=== PATIENT | female | born 1980 | race Asian ===

== ENCOUNTER 2018-08-04 16:06 | Emergency (ER) | payer OTHER ==
[2018-08-04 17:04] LABS: BEDSIDE GLUCOSE 84 MG/DL (70-105)
[2018-08-04 17:12] LABS: BASO % 0.4 % (0.0-1.0); EOS # 0.2 10^3/uL (0.0-0.50); EOS % 1.7 % (0.0-3.0); HEMOGLOBIN 11.5 g/dl (12.0-15.5); IMMATURE GRANULOCYTE % 0.4 % (0-3.0); LYMPH # 2.2 10^3/uL (1.5-4.5); LYMPH % 22.2 % (24.0-44.0); MEAN CORPUSCULAR HEMOGLOBIN 30.8 pg (27.0-33.0); MEAN CORPUSCULAR HGB CONC 33.8 g/dl (32.0-36.5); MEAN CORPUSCULAR VOLUME 91.2 fl (80.0-96.0); MONO # 0.6 10^3/uL (0.0-0.8); MONO % 6.3 % (0.0-5.0); NEUTROPHILS # 6.9 10^3/uL (1.8-7.7); PLATELET COUNT, AUTOMATED 233 10^3/uL (150-450); RED BLOOD COUNT 3.73 10^6/uL (4.00-5.40); RED CELL DISTRIBUTION WIDTH 12.7 % (11.5-14.5)
[2018-08-04] MEDS: METOCLOPRAMIDE INJ 10MG/2ML VIAL (J2765) IV (17:35)
[2018-08-04] MEDS: NS 1,000 ML IV (17:35)
[2018-08-04 17:37] LABS: INR 0.99; PROTHROMBIN TIME 13.2 SECONDS (12.1-14.4)
[2018-08-04 17:38] LABS: PARTIAL THROMBOPLASTIN TIME 27.1 SECONDS (25.4-37.6)
[2018-08-04 17:40] LABS: ANION GAP 9 MEQ/L (8-16); BLOOD UREA NITROGEN 10 MG/DL (7-18); CALCIUM LEVEL 8.9 MG/DL (8.5-10.1); CARBON DIOXIDE LEVEL 23 MEQ/L (21-32); CHLORIDE LEVEL 105 MEQ/L (98-107); CK-MB VALUE MASS < 1.0 NG/ML (<3.6); CPK CREATINE PHOSPHOKINASE 32 U/L (26-192); CREATININE FOR GFR 0.51 MG/DL (0.55-1.30); GLOMERULAR FILTRATION RATE > 60.0 (>60); GLUCOSE, FASTING 78 MG/DL (70-100); MB/CK RELATIVE INDEX 3.12 (< OR =4); POTASSIUM SERUM 4.1 MEQ/L (3.5-5.1); SODIUM LEVEL 137 MEQ/L (136-145); TROPONIN I < 0.02 NG/ML (< 0.10)
== END 2018-08-04 19:39 | disposition home or self-care (01) ==
LOC: M ED 16:06
DX: O99.351 Diseases of the nervous system complicating pregnancy, first trimester (principal); G43.909 Migraine, unspecified, not intractable, without status migrainosus; Z3A.13 13 weeks gestation of pregnancy
CPT/HCPCS: J2765

== ENCOUNTER → 2020-10-15 | Outpatient (REF) | payer OTHER ==
[~2020-10-15] MED LIST: PRENTAB55 PO
[2020-10-15 12:41] LABS: APPEARANCE, URINE CLEAR (CLEAR); BACTERIA, URINE AUTO NEGATIVE (NEGATIVE); BILIRUBIN, URINE AUTO NEGATIVE (NEGATIVE); BLOOD, URINE BLOOD NEGATIVE (NEGATIVE); COLOR, URINE YELLOW (YELLOW); GLUCOSE, URINE (UA) AUTO NEGATIVE (NEGATIVE); KETONE, URINE AUTO NEGATIVE (NEGATIVE); LEUKOCYTE ESTERASE, URINE AUTO NEGATIVE (NEGATIVE); MUCUS, URINE SMALL (NEGATIVE); NITRITE, URINE AUTO NEGATIVE (NEGATIVE); PROTEIN, URINE AUTO NEGATIVE (NEGATIVE); RBC, URINE AUTO 0 /HPF (0-3); SPECIFIC GRAVITY URINE AUTO 1.011 (1.002-1.035); SQUAMOUS EPITHELIAL CELL UR AU 0 /HPF (0-6); UROBILINOGEN, URINE AUTO 0.2 mg/dL (0.0-2.0); WBC, URINE AUTO 0 /HPF (0-3)
[2020-10-15 12:44] LABS: BASO % 0.7 % (0.0-1.0); EOS # 0.1 10^3/uL (0.0-0.5); EOS % 3.3 % (0.0-3.0); HEMOGLOBIN 12.8 g/dl (12.0-15.5); LYMPH # 1.8 10^3/uL (1.5-5.0); LYMPH % 42.2 % (24.0-44.0); MEAN CORPUSCULAR HEMOGLOBIN 30.1 pg (27.0-33.0); MEAN CORPUSCULAR VOLUME 94.1 fl (80.0-96.0); MONO # 0.4 10^3/uL (0.0-0.8); MONO % 8.9 % (0.0-5.0); NEUTROPHILS # 1.9 10^3/uL (1.5-8.5); NEUTROPHILS % 44.7 % (36.0-66.0); PLATELET COUNT, AUTOMATED 257 10^3/uL (150-450); RED BLOOD COUNT 4.25 10^6/uL (4.00-5.40); WHITE BLOOD COUNT 4.3 10^3/uL (4.0-10.0)
[2020-10-15 13:07] LABS: COMPLEMENT C3 92 MG/DL (90-180); COMPLEMENT C4 18 MG/DL (10-40)
[2020-10-15 13:09] LABS: CREATININE,RANDOM URINE 40.4 MG/DL; ERYTHROCYTE SEDIMENTATION RATE 8 mm/hr (0-20); TOTAL PROTEIN,RANDOM URINE 5.8 MG/DL (0.0-12.0)
[2020-10-15 13:10] LABS: ALBUMIN 3.7 GM/DL (3.2-5.2); ALT/SGPT 20 U/L (12-78); BILIRUBIN,DIRECT 0.2 MG/DL (0.0-0.2); BILIRUBIN,TOTAL 0.5 MG/DL (0.2-1.0); BLOOD UREA NITROGEN 15 MG/DL (7-18); CALCIUM LEVEL 8.8 MG/DL (8.5-10.1); CARBON DIOXIDE LEVEL 27 MEQ/L (21-32); CHLORIDE LEVEL 106 MEQ/L (98-107); CREATININE FOR GFR 0.65 MG/DL (0.55-1.30); GLOMERULAR FILTRATION RATE > 60.0 (>60); GLUCOSE, FASTING 84 MG/DL (70-100); POTASSIUM SERUM 4.2 MEQ/L (3.5-5.1); SODIUM LEVEL 140 MEQ/L (136-145); TOTAL PROTEIN 7.9 GM/DL (6.4-8.2)
[2020-10-15 13:17] LABS: HEPATITIS B SURFACE ANTIBODY NEGATIVE (POSITIVE)
[2020-10-15 13:28] LABS: HEPATITIS B SURFACE ANTIGEN NEGATIVE (NEGATIVE)
[2020-10-15 13:56] LABS: HEPATITIS C VIRUS ABY INDEX 0.1 INDEX (<0.8)
[2020-10-20 15:10] LABS: ANA (HEP2) Negative (.); BETA-2 GLYCOPROTEIN I ABY IGA <9 (0-25); BETA-2 GLYCOPROTEIN I ABY IGG <9 (0-20); BETA-2 GLYCOPROTEIN I ABY IGM <9 (0-32); CARDIOLIPIN IGA ANTIBODY <9 APL U/mL (0-11); CARDIOLIPIN IGG ANTIBODY <9 GPL U/mL (0-14); CARDIOLIPIN IGM ANTIBODY 10 MPL U/mL (0-12); HEPATITIS B CORE ANTIBODY IGG Negative (Negative)
[2020-10-21 09:47] LABS: DRVV SCREEN 31.7 SEC; PTT LUPUS TYPE ANTICOAG SCREEN 0.8 (0-1.2)
== END ==
LOC: M SFHCRHEU 09:54
PROVIDERS: ATTEND Internal Medicine
DX: I77.5 Necrosis of artery (principal)
CPT/HCPCS: 80048; 80076; 81001; 82570; 84156; 85025; 85652; 85730; 86038; 86140; 86146; 86147; 86160; 86162; 86256; 86704; 86706; 86803; 87340; G0463

== ENCOUNTER 2020-11-08 10:33 | Day surgery (SDC) | payer OTHER ==
[~2020-11-08] VITALS: Ht 160 cm; Wt 60.3 kg
[~2020-11-08 10:33] MED LIST changes: +NS 1,000 ML IV ONE; +OMEP-221
[2020-11-08] MEDS ORDERED: propofoL 200 MG/20 ML VIAL As Ordered ONE (10:34)
[2020-11-08] MEDS ORDERED: LIDOCAINE 2% 100MG/5ML SDV (FOR ANES.) As Ordered ONE (10:34)
--- OUTSIDE RECORDS SUMMARY | 2020-11-08 10:38 | CCD | Continuity of Care Document ---
Author Author Lisette PAVON M.D. Organization Unknown Address [address] [place] [address] Phone [phone] Care Team Providers Care Resort Keeper Name Role Phone Edenilson Holder MD [facility] [phone] Problems Active Problems Provider Date Abdominal pain Robe Pavon M.D. Onset: 10/28/19 21 Social History Type Date Description Comments Sex Unknown ETOH Use Occasionally Tobacco Use Start: Unknown Patient has never smoked Allergies, Adverse Reactions, Alerts Active Allergies Reaction Severity Comments Date NKDA 10/28/2020 Seasonal Allergies Medications Active Medications SIG Qnty Indications Ordering Provide r Date Omeprazole 40mg Capsules DR 1 cap by mouth every morning 90caps Robe Pavon M.D. 021 History Medications No Active Medications Robe mendoza M.D. 10/28/2020 - 10/28/2020 Immunizations Description No Information Available Vital Signs Date Vital Result Comment 10/28/2020 9:49am Height 63 inches 5'3" Weight 131.00 lb BP Systolic 99 mmHg BP Diastolic 73 mmHg Heart Rate 67 /min BMI (Body Mass Index) 23.2 kg/m2 Weight 59.422 kg Body Temperature 97.1 F Results Description No Information Available Procedures Description No Information Available Medical Devices Description No Information Available Encounters Type Date Location Provider Dx Diagnosis Office Visit 10/28/2020 9:30a Main Office Robe Pavon M.D. K 21.9 Gastro-esophageal reflux disease without esophagitis Assessments Date Code Description Provider 10/28/2020 K21.9 Gastroesophageal reflux disease Robe Pavon M.D. Plan of Treatment Future Appointment(s):* 11/03/2020 6:45 am - [facility] at Main Office * 11/08/2020 11:15 am - Robe Pavon M.D. at Main Office 10/28/2020 - Robe Pavon M.D.* K21.9 Gastroesophageal reflux disease* Comments:* 40 yo female who presents for a h/o heartburn. Pt has a h/o abdominal pain. No weight loss. No nausea/vomiting. Denies associated anorexia, bloating, constipation, diarrhea, dysphagia, fever, hematemesis, jaundice, malaise, nausea, rectal bleeding, inventory and pricing associate awakening, vomiting, weakness and weight loss. Plan:1. Ppi med2. Egd if needed. Functional Status Description No Information Available Mental Status Description No Information Available Referrals Refer to Dr Reason for Referral Status Appt Date Robe Pavon M.D. Scheduled [address] [place] [address] [phone]
--- OUTSIDE RECORDS SUMMARY | 2020-11-08 10:38 | CCD | Continuity of Care Document ---
Author Author Lisette PAVON M.D. Organization Unknown Address [address] [place] [address] Phone [phone] Care Team Providers Care Brazer Crawler Torch Name Role Phone Edenilson Holder MD [facility] [phone] Problems Active Problems Provider Date Abdominal pain [...] Medical Devices Description No Information Available Encounters Description No Information Available Assessments Date Code Description Provider 10/28/2020 K21.9 [...] fever, hematemesis, jaundice, malaise, nausea, rectal bleeding, medication reconciliation technician awakening, vomiting, weakness and weight loss. Plan:1. Ppi med2. Egd if needed. Functional Status Description No Information Available Mental Status Description No Information Available Referrals Refer to Dr Reason for Referral Status Appt Date Robe Pavon M.D. Scheduled [address] [place] [address] [phone]
--- OUTSIDE RECORDS SUMMARY | 2020-11-08 10:39 | CCD ---
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 Ye s Points 3 Interpretation Positive How often did you have six or more drinks on one occas ion in the past year? Never (0 points) How many drinks did you have on a typica l day when you were drinking in the past year? 1 or 2 (0 points) How often did you have a drink containing alcohol in t he past year? Two to three times per week (3 points) Tobacco Use: Question Answer Notes Are you a: never smoker REASON FOR REFERRAL No Information VITAL SIGNS Weight 132.0 lbs Sep, Weight-kg 59.8 kg Sep, Height 63 in Sep, BMI 23.38 kg/m2 Sep, Heart Rate 71 /min Sep, Respiratory Rate 18 /min Sep, Temperature 98.8 degrees Fahrenheit Sep, Oximetry 99 Sep, Blood pressure systolic 108 mm Hg Sep, Blood pressure diastolic 68 mm Hg Sep, MEDICATIONS Medication SIG (Take, Route, Frequency, Duration) Notes Start Da te End Date Status Ibuprofen 400 MG 1 tablet with food or milk a s needed Orally Three times a day as needed Active PROCEDURES No Information RESULTS REASON FOR VISIT No concerns at this time MEDICAL (GENERAL) HISTORY Type Description Date Medical History Vasculitis limited to the skin, unspecif ied Medical History Nontoxic multinodular goiter Medical History GERD without esophagitis Surgical History 01/15/2019 Surgical History Cervix biopsy 04/2019 Hospitalization History Surgical related Goals Section No Information Health Concerns No Information MEDICAL EQUIPMENT No Information MENTAL STATUS No Information FUNCTIONAL STATUS No Information ASSESSMENTS Encounter Date Diagnosis Assessment Notes Treatment Notes Treatm ent Clinical Notes Sep, Necrotizing vasculitis (ICD-10 - I77.5) Necrotizing fascitiis on the cervix is a rare finding. After review from the biopsy report, there was evidence in the deep cervical stroma of multiple foci with evidence of necrotizing vasculitis. 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 The overall clinical presentation lacks the symptoms and signs, related to an underlying systemic condition. The patient's language barrier negatively impacts the patient's ability to communicate any symptomatology adequately. The physical examination was unremarkable. Will perform further investigation of possible underlying systemic vasculitis, given the findings of necrotizing fascitiitis on the cervical biopsy. Will obtain ANCA, ARA, BMP, LFT, CBC w/ diff, complement levels (C3, C4, CH50), antiphospholipid antibodies (cardiolipin Ab, beta-2 glycoprotein Ab, lupus anticoagulant), urinalysis, urine protein:creatinine ratio, Hepatitis B surface antibody, Hepatitis B surface antigen, Hepatitis B core Antibody, and Hepatitis C antibody. Sep, Trochanteric bursitis of right hip (ICD-10 - M70 .61) Recommend exercises (3x/week for approximately 10 minutes). Clinical presentation consistent w/ trochanteric bursitis of the right hip. Information and exercises will be provided today. Recommend exercises (3x/week for approximately 10 minutes). Sep, Other Total time is s pent on the date of the encounter: 80 minutes PLAN OF TREATMENT Treatment Notes Assessment Notes Clinical Notes Necrotizing vasculitis Necrotizing fasci tiis on the cervix is a rare finding. After review from the biopsy report, there was evidence in the deep cervical stroma of multiple foci with evidence of necrotizing vasculitis. 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 The overall clinical presentation lacks the symptoms and signs, related to an underlying systemic condition. The patient's language barrier negatively impacts the patient's ability to communicate any symptomatology adequately. The physical examination was unremarkable. Will perform further investigation of possible underlying systemic vasculitis, given the findings of necrotizing fascitiitis on the cervical biopsy. Will obtain ANCA, ARA, BMP, LFT, CBC w/ diff, complement levels (C3, C4, CH50), antiphospholipid antibodies (cardiolipin Ab, beta-2 glycoprotein Ab, lupus anticoagulant), urinalysis, urine protein:creatinine ratio, Hepatitis B surface antibody, Hepatitis B surface antigen, Hepatitis B core Antibody, and Hepatitis C antibody. Trochanteric bursitis of right hip Recommend exercises (3x/week for approximately 10 minutes). Clinical presentation consistent w/ troc hanteric bursitis of the right hip. Information and exercises will be provided today. Recommend exercises (3x/week for approximately 10 minutes). Next Appt Details 1 month Reason:Necrotizing Vasculitis Provider Name:Urmila Woodson, 2020-11-12 12:15:00 AM, [address] [place] [address], [id number], Follow Up:1 monthNecrotizing Vasculitis Insurance Providers Payer Name Payer Address Payer Phone Insured Name Patient Relati onship to Insured Coverage Start Date Coverage End Date [facility] [id number] self
--- OUTSIDE RECORDS SUMMARY | 2020-11-08 10:39 | CCD ---
Author Author [facility] Organization [facility] Address Unknown Phone Unavailable Care Team Providers Care Information Analyst Name Role Phone Nicci Pavon MD Unavailable Unavailable Nicci Pavon MD Unavailable Unavailable Nicci Pavon MD Unavailable Unavailable Nicci Pavon MD Unavailable Unavailable Nicci Pavon MD Unavailable Unavailable Nicci Pavon MD Unavailable Unavailable Nicci Pavon MD Unavailable Unavailable Nicci Pavon MD Unavailable Unavailable Nicci Pavon MD Unavailable Unavailable Nicci Pavon MD Unavailable Unavailable Nicci Pavon MD Unavailable Unavailable Nicci Pavon MD Unavailable Unavailable Nicci Pavon MD Unavailable Unavailable Nicci Pavon MD Unavailable Unavailable Nicci Pavon MD Unavailable Unavailable Nicci Pavon MD Unavailable Unavailable Nicci Pavon MD Unavailable Unavailable Nicci Pavon MD Unavailable Unavailable Nicci Pavon MD Unavailable Unavailable Nicci Pavon MD Unavailable Unavailable Nicci Pavon MD Unavailable Unavailable Nicci Pavon MD Unavailable Unavailable Nicci Pavon MD Unavailable Unavailable Nicci Pavon MD Unavailable Unavailable Nicci Pavon MD Unavailable Unavailable Nicci Pavon MD Unavailable Unavailable Nicci Pavon MD Unavailable Unavailable Nicci Pavon MD Unavailable Unavailable Nicci Pavon MD Unavailable Unavailable Nicci Pavon MD Unavailable Unavailable Nicci Pavon MD Unavailable Unavailable Nicci Pavon MD Unavailable Unavailable Nicci Pavon MD Unavailable Unavailable Nicci Pavon MD Unavailable Unavailable Nicci Pavon MD Unavailable Unavailable Nicci Pavon MD Unavailable Unavailable Nicci Pavon MD Unavailable Unavailable Nicci Pavon MD Unavailable Unavailable Nicci Pavon MD Unavailable Unavailable Nicci Pavon MD Unavailable Unavailable Nicci Pavno MD Unavailable Unavailable Nicci Pavon MD Unavailable Unavailable Nicci Pavon MD Unavailable Unavailable Nicci Pavon MD Unavailable Unavailable Nicci Pavon MD Unavailable Unavailable Nicci Pavon MD Unavailable Unavailable Nicci Pavon MD Unavailable Unavailable Nicci Pavon MD Unavailable Unavailable Nicci Pavon MD Unavailable Unavailable Nicci Pavon MD Unavailable Unavailable Noel CROCKETT Unavailable Unavailable [facility], MJAIN Unavailable Unavailable Mah[place] Terell Vazquez MD Unavailable Unavailable Dg Terell Vazquez MD Unavailable Unavailable [place] Terell Vazquez MD Unavailable Unavailable Dg Terell Vazquez MD Unavailable Unavailable Dg Terell Vazquez MD Unavailable Unavailable Dg Terell Vazquez MD Unavailable Unavailable Dg Terell Vazquez MD Unavailable Unavailable [place] Terell Vazquez MD Unavailable Unavailable Dg Terell Vazquez MD Unavailable Unavailable Dg Terell Vazquez MD Unavailable Unavailable [place] Terell Vazquez MD Unavailable Unavailable [place] Terell Vazquez MD Unavailable Unavailable [place] Terell Vazquez MD Unavailable Unavailable Dg Terell Vazquez MD Unavailable Unavailable [place] Terell Vazquez MD Unavailable Unavailable Dg Terell Vazquez MD Unavailable Unavailable Dg Terell Vazquez MD Unavailable Unavailable [place] Terell Vazquez MD Unavailable Unavailable Dg Terell Vazquez MD Unavailable Unavailable [place] Terell Vazquez MD Unavailable Unavailable Dg Terell Vazquez MD Unavailable Unavailable Dg Terell Vazquez MD Unavailable Unavailable [place] Terell Vazquez MD Unavailable Unavailable [place] Terell Vazquez MD Unavailable Unavailable [place] Terell Vazquez MD Unavailable Unavailable [place] Terell Vazquez MD Unavailable Unavailable [place] Terell Vazquez MD Unavailable Unavailable Dg Terell Vazquez MD Unavailable Unavailable Dg Terell Vazquez MD Unavailable Unavailable Dg Terell Vazquez MD Unavailable Unavailable [place] Terell Vazquez MD Unavailable Unavailable [place] Terell Vazquez MD Unavailable Unavailable Dg JrTerell MD Unavailable Unavailable Dg JrTerell MD Unavailable Unavailable [place] JrTerell MD Unavailable Unavailable [place] JrTerell MD Unavailable Unavailable Dg JrTerell MD Unavailable Unavailable [place] JrTerell MD Unavailable Unavailable Mah[place] JrTerell MD Unavailable Unavailable [place] JrTerell MD Unavailable Unavailable Dg JrTerell MD Unavailable Unavailable [place] JrTerell MD Unavailable Unavailable Dg JrTerell MD Unavailable Unavailable Dg JrTerell MD Unavailable Unavailable [place] JrTerell MD Unavailable Unavailable Dg JrTerell MD Unavailable Unavailable [place] Jr, Terell Sun MD Unavailable Unavailable Dg JrTerell MD Unavailable Unavailable [place] Jr, Terell Sun MD Unavailable Unavailable Dg JreTrell MD Unavailable Unavailable Dg Jr, Terell Sun MD Unavailable Unavailable [place] JrTerell MD Unavailable Unavailable [place] JrTerell MD Unavailable Unavailable Dg JrTerell MD Unavailable Unavailable Dg JrTerell MD Unavailable Unavailable Dg JrTerell MD Unavailable Unavailable [place] JrTerell MD Unavailable Unavailable [place] Terell Vazquez MD Unavailable Unavailable [place] Terell Vazquez MD Unavailable Unavailable Dg Terell Vazquez MD Unavailable Unavailable [place] JrTerell MD Unavailable Unavailable Mah[place] JrTerell MD Unavailable Unavailable Dg JrTerell MD Unavailable Unavailable [place] Terell Vazquez MD Unavailable Unavailable Dg Terell Vazquez MD Unavailable Unavailable [place] JrTerell MD Unavailable Unavailable Dg JrTerell MD Unavailable Unavailable Gd Terell Vazquez MD Unavailable Unavailable [place] JrTerell MD Unavailable Unavailable [place] Terell Vazquez MD Unavailable Unavailable [place] Terell Vazquez MD Unavailable Unavailable Dg JrTerell MD Unavailable Unavailable [place] JrTerell MD Unavailable Unavailable Dg JrTerell MD Unavailable Unavailable Dg JrTerell MD Unavailable Unavailable Dg JrTerell MD Unavailable Unavailable [place] Terell Vazquez MD Unavailable Unavailable Dg Terell Vazquez MD Unavailable Unavailable Dg Terell Vazquez MD Unavailable Unavailable [place] Terell Vazquez MD Unavailable Unavailable Dg Terell Vazquez MD Unavailable Unavailable Maisha Encinas MD Unavailable Unavailable Rayancha, Maisha MD Unavailable Unavailable Rayancha, Maisha MD Unavailable Unavailable Rayancha, Maisha MD Unavailable Unavailable Rayancha, Maisha MD Unavailable Unavailable Rayancha, Maisha MD Unavailable Unavailable Rayancha, Maisha MD Unavailable Unavailable Rayancha, Maisha MD Unavailable Unavailable Rayancha, Maisha MD Unavailable Unavailable Rayancha, Maisha MD Unavailable Unavailable Rayancha, Maisha MD Unavailable Unavailable Rayancha, Maisha MD Unavailable Unavailable Rayancha, Maisha MD Unavailable Unavailable Rayancha, Maisha MD Unavailable Unavailable Rayancha, Maisha MD Unavailable Unavailable Rayancha, Maisha MD Unavailable Unavailable Rayancha, Maisha MD Unavailable Unavailable Rayancha, Maisha MD Unavailable Unavailable Rayancha, Maisha MD Unavailable Unavailable Rayancha, Maisha MD Unavailable Unavailable Rayancha, Maisha MD Unavailable Unavailable Rayancha, Maisha MD Unavailable Unavailable Rayancha, Maisha MD Unavailable Unavailable Rayancha, Maisha MD Unavailable Unavailable Rayancha, Maisha MD Unavailable Unavailable Rayancha, Maisha MD Unavailable Unavailable Rayancha, Maisha MD Unavailable Unavailable Rayancha, Maisha MD Unavailable Unavailable Rayancha, Maisha MD Unavailable Unavailable Rayancha, Maisha MD Unavailable Unavailable Rayancha, Maisha MD Unavailable Unavailable Rayancha, Maisha MD Unavailable Unavailable Rayancha, Maisha MD Unavailable Unavailable Rayancha, Maisha MD Unavailable Unavailable Rayancha, Maisha MD Unavailable Unavailable Rayancha, Maisha MD Unavailable Unavailable Rayancha, Maisha MD Unavailable Unavailable Rayancha, Maisha MD Unavailable Unavailable Rayancha, Maisha MD Unavailable Unavailable Rayancha, Maisha MD Unavailable Unavailable Rayancha, Maisha MD Unavailable Unavailable Rayancha, Maisha MD Unavailable Unavailable Re-disclosure Warning The records that you are about to access may contain information from federally-assisted alcohol or drug abuse programs. If such information is present, then the following federally mandated warning applies: This information has been disclosed to you from records protected by federal confidentiality rules (42 CFR part 2). The federal rules prohibit you from making any further disclosure of this information unless further disclosure is expressly permitted by the written consent of the person to whom it pertains or as otherwise permitted by 42 CFR part 2. A general authorization for the release of medical or other information is NOT sufficient for this purpose. The Federal rules restrict any use of the information to criminally investigate or prosecute any alcohol or drug abuse patient.The records that you are about to access may contain highly sensitive health information, the redisclosure of which is protected by Article 27-F of the [facility] Public Health law. If you continue you may have access to information: Regarding HIV / AIDS; Provided by facilities licensed or operated by the [facility] Office of Mental Health; or Provided by the [facility] Office for People With Developmental Disabilities. If such information is present, then the following [facility] mandated warning applies: This information has been disclosed to you from confidential records which are protected by state law. State law prohibits you from making any further disclosure of this information without the specific written consent of the person to whom it pertains, or as otherwise permitted by law. Any unauthorized further disclosure in violation of state law may result in a fine or intermediate sentence or both. A general authorization for the release of medical or other information is NOT sufficient authorization for further disc losure. 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[facility], [facility]) Encounters Encounter Providers Location Date Indications Data Source(s ) Outpatient Attender: Dino Conte Jr 04/13/2021 12:00:00 AM [facility] Outpatient Attender: Robe Pavon MD Main Office 10/28/2020 08:30:00 AM EST [facility] ([facility]) Outpatient [facility] [place] [address] 10/15/2020 12:00:00 AM EST eCW1 ([facility]) Outpatient Attender: Dino Conte JrAdmitter: Dino Conte Jr 0 [id number] 10/13/2020 12:00:00 AM EST - 10/13/2020 03:39:33 PM EST 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 Outpatient Attender: Dino Conte Jr 09/29/2020 12:00:00 AM EST [facility] Outpatient Attender: [facility] LERAYDC 07/14/2020 12:02:10 AM [facility] Outpatient Attender: Maisha Encinas MDReferrer: ALIRIO CROCKETT 11/11/2019 12:00:00 AM [facility] Outpatient Attender: [facility] ASMITA 11/05/2019 10:06:00 AM [facility] Outpatient Attender: Maisha Encinas MD 10/28/2019 12:00: 00 AM [facility] Medications Medication Brand Name Start Date Product Form Dose Route Admi nistrative Instructions Pharmacy Instructions Status Indications Reaction Description Data Source(s) Omeprazole 40 MG Delayed Release Oral Capsule Omeprazole 10/28/2020 12:00:00 AM EST ORAL active [facility] ([facility]) No Active Medications 10/28/2020 12:00:00 AM EST completed [facility] ([facility]) Insurance Providers Payer name Policy type / Coverage type Policy ID Covered republican ID Covered republican's relationship to odell Policy Odell Plan Information [employer] [employer] [id number] [facility] [id number] U [id number] Self [id number] Self Pay P [id number] S [id number] Self Pay P UNAVAILABLE S UNAVAILA BLE HEA [id number] SP [id number] [place] Commercial [id number] Family Dependent [id number] [place] Commercial [id number] Family Dependent [id number] Hum[employer] Commercial [id number] Family Dependent [id number] U [id number] Self [id number] U [id number] Spouse [id number] U [id number] Self [id number] Problems, Conditions, and Diagnoses Code Display Name Description Problem Type Effective Dates Data Source(s) 46489179 Abdominal pain Abdominal pain Problem 10/28/2020 12:00: 00 AM EST [facility] ([facility]) I77.5 [id number] Necrotizing vasculitis Problem 10/15/2020 12 :00:00 AM EST eCW1 ([facility]) 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 ID Date Data Source HEPATITIS B CORE ANTIBODY IGG 10/15/2020 12:00:00 AM EST eCW 1 ([facility]) Name Value Range Interpretation Code Description Data Sarah rce(s) Supporting Document(s) Negative Negative eCW1 ([facility]) ID Date Data Source ARA TITER & PATTERN 10/15/2020 12:00:00 AM EST eCW1 [facility] Name Value Range Interpretation Code Description Data Sarah rce(s) Supporting Document(s) Negative . eCW1 ([facility]) ID Date Data Source LUPUS TYPE ANTICOAGULANT SCREE 10/15/2020 12:00:00 AM EST eC W1 ([facility]) Name Value Range Interpretation Code Description Data Sarah rce(s) Supporting Document(s) 0.8 0-1.2 eCW1 ([facility]) ID Date Data Source COMPLEMENT TOTAL (CH50) 10/15/2020 12:00:00 AM EST eCW1 ([facility]) Name Value Range Interpretation Code Description Data Sarah rce(s) Supporting Document(s) 58 >41 eCW1 ([facility]) ID Date Data Source ANTI-CARDIOLIPIN ANTIBODIES 10/15/2020 12:00:00 AM EST eCW1 ([facility]) Name Value Range Interpretation Code Description Data Sarah rce(s) Supporting Document(s) <9 0-11 eCW1 ([facility]) <9 0-14 eCW1 ([facility]) 10 0-12 eCW1 ([facility]) ID Date Data Source BETA-2 GLYCOPROTEIN 1 MARCO JR 10/15/2020 12:00:00 AM EST eCW 1 ([facility]) Name Value Range Interpretation Code Description Data Sarah rce(s) Supporting Document(s) <9 0-20 eCW1 ([facility]) <9 0-25 eCW1 ([facility]) <9 0-32 eCW1 ([facility]) ID Date Data Source ANCA Panel with MPO & PR3 10/15/2020 12:00:00 AM EST eCW1 ([facility]) Name Value Range Interpretation Code Description Data Sarah rce(s) Supporting Document(s) Proteinase 3 Ab [Units/volume] in Serum <3.5 0.0-3.5 eCW1 ([facility]) Neutrophil cytoplasmic Ab.classic [Titer] in Serum by Immuno fluorescence <1:20 Neg:<1:20 eCW1 ([facility]) Myeloperoxidase Ab [Units/volume] in Serum <9.0 0.0-9.0 eCW1 ([facility]) Neutrophil cytoplasmic Ab.perinuclear [Titer] in Serum by Immunofluorescence <1:20 Neg:<1:20 eCW1 ([facility]) Neutrophil Cytoplasmic Ab atypical [Presence] in Serum by Immunofluorescence <1:20 Neg:<1:20 eCW1 ([facility]) ID Date Data Source CREATININE,RANDOM URINE 10/15/2020 12:00:00 AM EST eCW1 ([facility]) Name Value Range Interpretation Code Description Data Sarah rce(s) Supporting Document(s) 40.4 eCW1 ([facility]) ID Date Data Source UA URINALYSIS 10/15/2020 12:00:00 AM EST eCW1 [facility] Name Value Range Interpretation Code Description Data Sarah rce(s) Supporting Document(s) eCW1 ([facility]) ID Date Data Source TOTAL PROTEIN,RANDOM URINE 10/15/2020 12:00:00 AM EST eCW1 ( [facility]) Name Value Range Interpretation Code Description Data Sarah rce(s) Supporting Document(s) 5.8 0.0-12.0 eCW1 ([facility]) ID Date Data Source Basic Metabolic Profile (BMP) 10/15/2020 12:00:00 AM EST eCW 1 ([facility]) Name Value Range Interpretation Code Description Data Sarah rce(s) Supporting Document(s) 15 7-18 eCW1 ([facility]) 0.65 0.55-1.30 eCW1 ([facility]) 84 70-100 eCW1 ([facility]) > 60.0 >60 eCW1 ([facility]) 27 21-32 eCW1 ([facility]) 140 136-145 eCW1 ([facility]) 4.2 3.5-5.1 eCW1 ([facility]) 106 98-107 eCW1 ([facility]) 8.8 8.5-10.1 eCW1 ([facility]) ID Date Data Source LIVER PROFILE 10/15/2020 12:00:00 AM EST eCW1 [facility] Name Value Range Interpretation Code Description Data Sarah rce(s) Supporting Document(s) 20 12-78 eCW1 ([facility]) 9 7-37 eCW1 ([facility]) 7.9 6.4-8.2 eCW1 ([facility]) 0.2 0.0-0.2 eCW1 ([facility]) 59 45-117 eCW1 ([facility]) 3.7 3.2-5.2 eCW1 ([facility]) 0.5 0.2-1.0 eCW1 ([facility]) 0.9 1.2-2.2 eCW1 ([facility]) ID Date Data Source HEPATITIS C ANTIBODY INDEX 10/15/2020 12:00:00 AM EST eCW1 ( [facility]) Name Value Range Interpretation Code Description Data Sarah rce(s) Supporting Document(s) 0.1 <0.8 eCW1 ([facility]) ID Date Data Source ERYTHROCYTE SEDIMENTATION RATE 10/15/2020 12:00:00 AM EST eC W1 ([facility]) Name Value Range Interpretation Code Description Data Sarah rce(s) Supporting Document(s) 8 0-20 eCW1 ([facility]) ID Date Data Source HEPATITIS B SURFACE ANTIBODY 10/15/2020 12:00:00 AM EST eCW1 ([facility]) Name Value Range Interpretation Code Description Data Sarah rce(s) Supporting Document(s) NEGATIVE POSITIVE eCW1 ([facility]) ID Date Data Source HEPATITIS B SURFACE ANTIGEN 10/15/2020 12:00:00 AM EST eCW1 ([facility]) Name Value Range Interpretation Code Description Data Sarah rce(s) Supporting Document(s) NEGATIVE NEGATIVE eCW1 ([facility]) ID Date Data Source C REACTIVE PROTEIN QUANTITATIV (At [facility]) 10/15/2020 12:00 :00 AM EST eCW1 ([facility]) Name Value Range Interpretation Code Description Data Sarah rce(s) Supporting Document(s) 0.30 0.00-0.30 eCW1 ([facility]) ID Date Data Source CBC with Differential 10/15/2020 12:00:00 AM EST eCW1 ([facility]) Name Value Range Interpretation Code Description Data Sarah rce(s) Supporting Document(s) 4.25 4.00-5.40 eCW1 ([facility]) 12.8 12.0-15.5 eCW1 ([facility]) 4.3 4.0-10.0 eCW1 ([facility]) 30.1 27.0-33.0 eCW1 ([facility]) 32.0 32.0-36.5 eCW1 ([facility]) 94.1 80.0-96.0 eCW1 ([facility]) 40.0 36.0-47.0 eCW1 ([facility]) 257 150-450 eCW1 ([facility]) 42.2 24.0-44.0 eCW1 ([facility]) 44.7 36.0-66.0 eCW1 ([facility]) 13.3 11.5-14.5 eCW1 ([facility]) 8.9 0.0-5.0 eCW1 ([facility]) 3.3 0.0-3.0 eCW1 ([facility]) 1.9 1.5-8.5 eCW1 ([facility]) 0.7 0.0-1.0 eCW1 ([facility]) 0.1 0.0-0.5 eCW1 ([facility]) 1.8 1.5-5.0 eCW1 ([facility]) 0.4 0.0-0.8 eCW1 ([facility]) 0.0 0.0-0.2 eCW1 ([facility]) ID Date Data Source COMPLEMENT C4 10/15/2020 12:00:00 AM EST eCW1 [facility] Name Value Range Interpretation Code Description Data Sarah rce(s) Supporting Document(s) 18 10-40 eCW1 ([facility]) ID Date Data Source COMPLEMENT C3 10/15/2020 12:00:00 AM EST eCW1 [facility] Name Value Range Interpretation Code Description Data Sarah rce(s) Supporting Document(s) 92 90-180 eCW1 ([facility]) ID Date Data Source [id number] 10/13/2020 04:08:14 PM EST [facility] Name Value Range Interpretation Code Description Data Sarah rce(s) Supporting Document(s) Progress Note [facility] [id number]/MQHbyMOMve4MbWPoiXXt4CXuwXNIjQ8LaJBQ1vF3sQLI0AYcUYvTlWiRgHDD0 lbm [file] RdB4cLRbydw80AFIlzGnW6DQhWdbBn+i/tenqxAzg9LPjbMkcpC/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/ClLV5nn1fMVqAu7X+GnyazLv [file] 4GPIAmPK5ULYUgBdSeIHHKMdHjYCLrJfWaKzBtMKSW FKajKORoZ0NfVUG3LYOkTy7+OKluJK5PW2HgPSB7XVy2FO8+VTtpOK8QdSHMD4QwoPGjPQpkU1AZHW0F QUP8SY2DbXLmYD8XaKJXV4WeaBApZz1yCQEye0YvDy1lP3ETZEAMVHZtKIfkEMasDNDtARb0N3T2RHBb J2KKF716hNHumVn7Ex2kJ6YKGOlILdFcWAtwMIsfLT HoHWa1W3R6MISrK4PMN2QbVdIpbtKkH7H+ZjEjFKSGJS6AMCRICGd0P2G2sRTwG1L0xXkOwZN5CU7ZPH 5BgQTzlGBkk44+NvUKQbBmX2DTY5TVEV2EWBs0E3U6bGXwO3Y4iJqNwJL0RR1JOO0EzDmxdBFaLb0mDW ogICA+Wl8NFe9CVpHqOY7fht4XOfnfDDErJuaMXpz2 H3zeiws8kOUsLpM0R3W5DdG4mCUvIS3NH5G7wTTiTJJ6GSPhpZG+Ux4Rk2CjQSLwIKx5T4nbQTRuFQCm OoDpzK55T++9claqkRS2O1c1GPLQhYGedKnIfcDdI5dMFFO7h7U3WXp/Ho2CEII8yXd9iTDuJLDpGAd0 nO1ctNv2MqWwKA77WOHjBRysyG3vDcx5I1Tbx0OaVo 4rEw8pjOFcQh2FLcUlWBZ8ffBvMaOHWmV9wRclqtepTNQ4Q3z9nRU4Ch97o4wgvdEgl2RiHyU6PHlxSW MvScJlcrYlNTI1crKjwT4mgfLkCu3BUSQaXQqdznJjLwNBVi3BMyUtUO15VfgwvI5gsCZ+DQogICAgIC AgICAgICAgICAgICAgICAgICAgICAgICAgICAgICAg ICAgICAgICAgICAgICAgICAgICAgICAgICAgICAgICAgICAgICAgICAgICAgICAgICAgICAgICAgICAg ICAgDQogICAgICAgICAgICAgICAgICAgICAgICAgICAgICAgICAgICAgICAgICAgICAgICAgICAgICAg ICAgICAgICAgICAgICAgICAgICAgICAgICAgICAgIC AgICAgICAgICAgICAgDQogICAgICAgICAgICAgICAgICAgICAgICAgICAgICAgICAgICAgICAgICAgIC AgICAgICAgICAgICAgICAgICAgICAgICAgICAgICAgICAgICAgICAgICAgICAgICAgICAgICAgDQogIC AgICAgICAgICAgICAgICAgICAgICAgICAgICAgICAg ICAgICAgICAgICAgICAgICAgICAgICAgICAgICAgICAgICAgICAgICAgICAgICAgICAgICAgICAgICAg ICAgICAgDQogICAgICAgICAgICAgICAgICAgICAgICAgICAgICAgICAgICAgICAgICAgICAgICAgICAg ICAgICAgICAgICAgICAgICAgICAgICAgICAgICAgIC AgICAgICAgICAgICAgICAgDQogICAgICAgICAgICAgICAgICAgICAgICAgICAgICAgICAgICAgICAgIC AgICAgICAgICAgICAgICAgICAgICAgICAgICAgICAgICAgICAgICAgICAgICAgICAgICAgICAgICAgDQ ogICAgICAgICAgICAgICAgICAgICAgICAgICAgICAg ICAgICAgICAgICAgICAgICAgICAgICAgICAgICAgICAgICAgICAgICAgICAgICAgICAgICAgICAgICAg ICAgICAgICAgDQogICAgICAgICAgICAgICAgICAgICAgICAgICAgICAgICAgICAgICAgICAgICAgICAg ICAgICAgICAgICAgICAgICAgICAgICAgICAgICAgIC AgICAgICAgICAgICAgICAgICAgDQogICAgICAgICAgICAgICAgICAgICAgICAgICAgICAgICAgICAgIC AgICAgICAgICAgICAgICAgICAgICAgICAgICAgICAgICAgICAgICAgICAgICAgICAgICAgICAgICAgIC AgDQogICAgICAgICAgICAgICAgICAgICAgICAgICAg ICAgICAgICAgICAgICAgICAgICAgICAgICAgICAgICAgICAgICAgICAgICAgICAgICAgICAgICAgICAg JOYcDCLcGTBiGWQcNOi5L8lfIPDgXUQxVW4hJFi1Rv5+YBiJBuQoXQH9xjTwdH4CUQ2xg2PzXXvmGQOk j3HjAMi3IJ4LDPHnGUnoWT7ESVojxp7PXQWvRPGneD EXg0ynPsMiHYJ2MZRyUorfQZ7URSQhX0xqmcNhDNCiONLKEYxdXHNBFVwkXZFDIPTpXHSsCnCpQIyyNG 8Zz9OmpYN1BZn+Fb4FBM6pf5NvNCczQVMzMQ8dhx2RNHyEWpQaI3SoliP7YWC0RPWoUx3FBKQoUTWffD SpRTGbAOJCZdFbB4BoyU50SHSVRl3+DQplbmRvYmoN OfK5NXCsq0FsHHg7WH1VZKDtLQj8oZHoHOGtW1Iik4IuLl15RAAmTjcrU8xkKLkiRR53C9euatJCsC1z GKqzDhrvLTMvUAUbDN8xXb2pAKCbGSMwAqRqLOOAIR7SBSJvETKioKHvCHOqIBJHBI2COJjoYRZ9CYIk ahMamLWzJYzfQL8GFHZszeFwJfnyHSVSTHc+Pg0KZW 5xi8CmTYhrIBPjCO7vgr3HDKlSTkEdL0F5tMEpH2L3TNoxAq6YQBKkABVmByIjNIVKRQgjJM3RIK2lyc U0JR6KhEHuPSFwEXGtcHDeEYp2W74seUHqFQdvOV7JUAY+Adelina+Hc4BFIVeQQYsAQWxGiOeCNEHReGiN6 NtJ5EVe5BoI0LzJS48qZgiofMlRQixEB1DWB8dXTFe ZFAEBM1SzVTtcS0gldTpZLZaYYBJZeOwJ29pvWAwTLNuTWV5CYHlOz7HTJGxY7ScecSuuZajifNwKUMg INWFBV6XCUgenyVqyPThjTdhJV70iUvlZK4BIg5EIdZaWT2nxq4PmGFjXw3QMQHdJA8DPWUwNXReJQJq BSI9YAZjDzBjMEwwJPRtHDGcXAT4CIZvPSJjFA2PAc OkUHDoQMU2OSAxMTGmCECmtv5QZYWcRAX6CtQ4PtKhUIDuQQHkEHolKSZlUQYkZIG4SQIsZLYxHB8HHb RuRBLbSHZsLCKiSCOkRGQpfx2EGWAhLZLxVzM5MMRlOQYrGGRjSCoqQFZpJFJ1BrQfGBOsDSWlKZ6JKi ThEJXnXKM4PlvwEYHuGGJlvf8EMWRqMPOmUYX2LPJh SCHpLYDkNMqpAWVxNJB9UxZ8WYRvCNEdAX8NJjUhRLXsUHExHOnjQXRdHOFplu5UVVDhMDFpFIL0BBNw NNTrALXhKCbfQQFbQZWeQpU5RCIaMDGeEF1AKnSeJKWiBPH7BzWsBXInSHCrem7LVBLfZWCvLKlzLJMa UQTpWCPrQBdkFLCqIXGyRqK9ARSkVTFxNW2GBsAnPA UuOCW2ShJsCHKqYYIbjc9EJLTyKKQjPcQ0UFYgLTMsECJoRHxvKMKtAMUkEPT2JEUvKUKyFV5ZFvXzEE NjERT6XPZdUDBhUTNlky9DYOTgNJM7ZqcwKMGyBSKyMYMvMZseUVFpSZK3EBe3WSHzMSOzLH1ETwFiGY AdBGR6MiTvMWHgLMEdhk6ODUZaLXS5VTQ7BELgYFJh KMOvORdeMCOnBAE1AvKpKFKwDWYeAB1FJjApCPPjVXV3HvDzZEWmYBPvjz9OIPImEXB3GwV9RcBhMDZz XVLcQVfzSCYzHWB3TSW7VSIxWYQqQY0ZMvAzGIGiGDl3JaGxJMRxBDQsep8NTMPlIED6UHRyJwVaIJVg NTKyQYl8apInqJQcKBu4XU7CL3GvnkNiXhZQDe1Ya5 91MMToCTDsQe5II5jyMk6cTDTuTUBJQx7HGPq2XsR3Lvl1OTW8JqSlGihqZWAfNOmbZWVbSBm5YAK6CW c+IHmbMBs8PvD4NCNwNLPaNkQiNKOxMrZ9LNIjBnlnDUMsXn8qDODPFo3+HItuaBBqkJblDQOOIiF9Ba e8NPlfOTONLg8S ID Date Data Source [id number] 10/18/2020 05:56:00 PM [facility] CYTOPATHOLOGY REPORTName: SCOUT FRANKLINMRN: [id number] Number: [id number] Date: 10/13/2020 00:00Received Date: 10/14/2020 10:21Physician(s): DINO CONTE JR, MD BUNN JR, WILEY DOUGLAS, MD Specimen(s) ReceivedA: ThinPrep Pap test with Imaging System Dual Review with full manualrescreen.Date of Last Menstrual Period: 09/22/2020Menstrual History:CyclingPrior Pap Diagnosis History:History of Previous Pap not availableClinical Findings:Source: Cervical /endocervicalICD Code: D06.0 CARCINOMA IN SITU OF ENDOCERVIXADEQUACY OF THE SPECIMEN:Satisfactory for evaluation. Transformation zone component identified.GENERAL CATEGORIZATIONNegative for intraepithelial lesion or malignancy Reviewing [employer]: STUART FriendElectronically Signed By STUART Curry(ASCP) ([facility]) at 117:56:57 Procedures/Addenda Name Value Range Interpretation Code Description Data Sarah rce(s) Supporting Document(s) Procedure Social History Code Duration Value Status Description Data Source(s ) Smoking 10/15/2020 12:00:00 AM EST Never Smoker completed Never S luis alberto eCW1 ([facility]) Vital Signs ID Date Data Source UNK Name Value Range Interpretation Code Description Data Source(s) Body temperature 97.1 [degF] 97.1 [degF] MEDENT ([facility]) Body weight 59.422 kg 59.422 kg [facility] ([facility]) Body mass index (BMI) [Ratio] 23.2 kg/m2 23.2 k g/m2 MEDENT ([facility]) Heart rate 67 /min 67 /min [facility] ([facility]) Diastolic blood pressure 73 mm[Hg] 73 mm[Hg] MEDENT ([facility]) Systolic blood pressure 99 mm[Hg] 99 mm[Hg] M EDENT ([facility]) Body weight 131.00 [lb_av] 131.00 [lb_av] MEDEN T ([facility]) Body height 63 [in_i] 63 [in_i] MEDENT ([facility]) 5'3" Body temperature 98.8 [degF] 98.8 [degF] eCW1 ( [facility]) Respiratory rate 18 /min 18 /min eCW1 ([facility]) Heart rate 71 /min 71 /min eCW1 ([facility]) Body mass index (BMI) [Ratio] 23.38 kg/m2 23.38 kg/m2 eCW1 ([facility]) Body height 63 [in_i] 63 [in_i] eCW[facility] Body weight 59.8 kg 59.8 kg W1 ([facility]) Body weight 132.0 [lb_av] 132.0 [lb_av] eCW1 ([facility]) Diastolic blood pressure 68 mm[Hg] 68 mm[Hg] eCW1 ([facility]) Systolic blood pressure 108 mm[Hg] 108 mm[Hg] e CW1 ([facility]) ID Date Data Source [id number] 10/18/2020 05:57:17 PM [facility] Name Value Range Interpretation Code Description Data Source(s) WEIGHT RECORDED 130 lb 130 lb [facility] Body height Measured 63 in 63 in [facility]
[2020-11-08] MEDS ORDERED: fentaNYL 100 MCG/2 ML INJECTION (J3010) As Ordered ONE (11:06)
--- NOTE | 2020-11-08 11:41 | ROOR ---
Patient Name: Lisette Delaney Procedure Date: 11/08/2020 11:27 AM Date of : 1980 Age: 40 Room: [facility] Gender: Female Note Status: Finalized Procedure: Upper Endoscopy + Biopsies Indications: Heartburn, Nausea with vomiting Providers: Robe Pavon MD Referring MD: RAFAEL HALL MD Requesting Provider: Medicines: Monitored Anesthesia Care Complications: No immediate complications. Procedure: Pre-Anesthesia Assessment: - The heart rate, respiratory rate, oxygen saturations, blood pressure, adequacy of pulmonary ventilation, and response to care were monitored throughout the procedure. The Endoscope was introduced through the mouth, and advanced to the second part of duodenum. The upper GI endoscopy was accomplished without difficulty. The patient tolerated the procedure well. Findings: The Z-line was regular and was found 40 cm from the incisors. No other significant abnormalities were identified in a careful examination of the stomach. Biopsies were taken with a cold forceps in the gastric antrum for Helicobacter pylori testing. The exam of the duodenum was otherwise normal. Impression: - Z-line regular, 40 cm from the incisors. - Biopsies were taken with a cold forceps for Helicobacter pylori testing. - The examination was otherwise normal. Recommendation: - Patient has a contact number available for emergencies. The signs and symptoms of potential delayed complications were discussed with the patient. Return to normal activities tomorrow. Written discharge instructions were provided to the patient. - Resume previous diet. - Discharge patient to home. - Continue present medications. - Await pathology results. - Telephone GI clinic for pathology results in 1 week. - Return to referring physician. - The findings and recommendations were discussed with the patient. Procedure Code(s): --- Professional --- 59246, Esophagogastroduodenoscopy, flexible, transoral; with biopsy, single or multiple Diagnosis Code(s): --- Professional --- R12, Heartburn R11.2, Nausea with vomiting, unspecified CPT copyright 2019 [employer]. All rights reserved. The codes documented in this report are preliminary and upon radar systems engineer review may be revised to meet current compliance requirements. Robe Pavon MD Robe Pavon MD 11/08/2020 11:41:35 AM Electronically signed by Robe Pavon MD Number of Addenda: 0 Note Initiated On: 11/08/2020 11:27 AM Estimated Blood Loss: Estimated blood loss: none.
[2020-11-08 12:00] VITALS: BP 104/62
== END 2020-11-08 12:13 | disposition home or self-care (01) ==
LOC: M OPP 10:33
PROVIDERS: ATTEND Internal Medicine Gastroenterology
DX: R12 Heartburn (principal); R11.2 Nausea with vomiting, unspecified; D13.1 Benign neoplasm of stomach; Z79.899 Other long term (current) drug therapy
CPT/HCPCS: 43239; 88305; J3010

== ENCOUNTER 2021-04-03 21:54 | Emergency (ER) | payer OTHER ==
[~2021-04-03] VITALS: Ht 160 cm; Wt 61.5 kg
[~2021-04-03 21:54] MED LIST changes: -NS 1,000 ML IV ONE
[2021-04-03 21:56] VITALS: BP 99/55
[2021-04-03] MEDS ORDERED: NAPR-885 PO (22:02)
[2021-04-03] MEDS ORDERED: OMEP-221 PO (22:02)
== END 2021-04-04 02:05 | disposition left against medical advice (07) ==
LOC: M ED 21:54
DX: Z53.21 Procedure and treatment not carried out due to patient leaving prior to being seen by health care provider (principal)